=== PATIENT | male | born 1985 | race Hispanic/Latino ===

== ENCOUNTER 2019-01-31 09:16 | Emergency (ER) | payer SELFPAY ==
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
== END 2019-01-31 09:40 | disposition home or self-care (01) ==
LOC: ER 09:16
DX: F41.9 Anxiety disorder, unspecified (principal)
CPT/HCPCS: 99283